=== PATIENT | female | born 1995 | race Caucasian/White ===

== ENCOUNTER → 2017-03-05 | Outpatient (CLI) | payer BC ==
[~2017-03-05] MED LIST: BCPILLS PO; IBUP-1050 PO; LISD40CA PO; SUMA100T16 PO
[2017-03-07 00:44] LABS: CHLAMYDIA TRACH RNA*** NOT DETECTED (NOT DETECTED); GC (NEIS GONORRHOEAE)RNA** NOT DETECTED (NOT DETECTED)
== END | disposition home or self-care (01) ==
LOC: C.LABSPEC 11:01
PROVIDERS: ATTEND Obstetrics & Gynecology
DX: Z11.3 Encounter for screening for infections with a predominantly sexual mode of transmission (principal)

== ENCOUNTER → 2018-03-12 | Outpatient (CLI) | payer OTHER | END | disposition home or self-care (01) | LOC: C.PAPS 14:38 | PROVIDERS: ATTEND Obstetrics & Gynecology | DX: Z12.4 Encounter for screening for malignant neoplasm of cervix (principal) ==

== ENCOUNTER → 2018-03-12 | Outpatient (CLI) | payer OTHER ==
[2018-03-12 13:35] LABS: FOLLICLE STIMULAT HORMONE 0.71 IU/L; LUTEINIZING HORMONE 0.16 IU/L; PROLACTIN 10.95 ng/mL
== END | disposition home or self-care (01) ==
LOC: C.LAB1850 11:59
PROVIDERS: ATTEND Obstetrics & Gynecology
DX: N91.2 Amenorrhea, unspecified (principal)

== ENCOUNTER → 2018-03-14 | Outpatient (CLI) | payer OTHER | END | disposition home or self-care (01) | LOC: C.LAB1850 09:46 | PROVIDERS: ATTEND Obstetrics & Gynecology | DX: Z34.01 Encounter for supervision of normal first pregnancy, first trimester (principal) ==

== ENCOUNTER 2018-11-20 05:32 | Inpatient (IN) ==
[2018-11-20] MEDS ORDERED: OXYTOCIN 30 UNITS/500 ML BAG IV PRN ×2 (06:37→09:41)
[2018-11-20] MEDS ORDERED: LACTATED RINGER'S 1,000 ML IV PRN ×3 (06:37→09:41)
--- NOTE | 2018-11-20 06:46 | History & Physical Report ---
Date of Service November 20, 2018 Assessment & Plan (1) 39 weeks gestation of : (2) SROM (spontaneous rupture of membranes): admit, iv, labs. fhts categ 1. if labor pattern does not develop will plan pit. pt aware and agreeable. History of Present Illness Chief Complaint: leaking since 5am, clear. andrey fell out at 2am Primary Care Provider: PEGGY Steele 23yo at 40wks ega presents to L&D with cc as noted. Having ctx, not regular. ROM clear fluid. No vb. +FM. PNC c/b 1. ADHD 2. Anxiety 3. Asthma 4. SMA carrier, FOB is not 5. Tired of being PNL RH pos, RI, GBS neg OBH: G1 GYNH: neg pap, no stds PMH: migraines, and as noted above PSH: wisdom teeth SH: no tob, etoh or drugs FH: no trent anom or mr Allergies Allergy/AdvReac Type Severity Reaction Status Date / Time No Known Drug Allergies Allergy Unknown . Verified 09/03/18 17:07 Home Medications Home Medications Medication Instructions Recorded Confirmed Type albuterol sulfate 1 inh INHALATION QID PRN 11/19/18 11/19/18 History docusate sodium [Colace] 100 mg PO DAILY 11/19/18 11/19/18 History vit-iron fum-folic ac 1 tab PO DAILY 11/19/18 11/19/18 History [ Vitamin] ranitidine HCl [Zantac 75] 75 mg PO DAILY 11/19/18 11/19/18 History Patient History Medical History Migraines ADHD (attention deficit hyperactivity disorder), inattentive type Acid reflux Anxiety Asthma H/O wisdom tooth extraction Sinusitis Social History Preferred Language: Danish Communication Ability: Effective Beliefs That Will Affect Care: None marital status: Single Current Living Situation: Significant Other current occupational status: employed Other Information That Helps Us Care for You: No Feels Safe at Home: Yes Smoking Status: Former smoker Tobacco Type: cigarettes Cigarettes Per Day: 2 Hx Alcohol Use: No Hx Substance Use: No Physical Exam Vital Signs (Past 24 Hours): Last Vital Signs Temp 97.9 F 11/20/18 05:45 Pulse 75 11/20/18 05:45 Resp 20 11/20/18 05:45 BP 129/69 11/20/18 05:45 Constitutional: WD/WN, vitals as above Respiratory: normal respiratory effort, lungs clear to auscultation Cardiovascular: RRR, no murmur, no edema Musculoskeletal: nt calves Neurologic: grossly normal Genitourinary: Manual OB Exam: + cervical dilation 4 cm, + cervical effacement (75), + station -2 and + amniotic fluid (SSE small pool, ?forebag attempted rom but no result) clear, nitrazine positive and ferning present OB Exam Monitor Tracing: + external FHT monitor used (135 mod variability), + external uterine monitor used (q1-5), + category I and + normal FHT variability
[2018-11-20 07:03] LABS: Hemoglobin 12.1 g/dL (12.0-16.0); Mean Corpuscular Volume 88.6 fL (80-100); Mean Platelet Volume 9.4 fL (7.4-10.4); Platelet Count 226 K/uL (130-400); RDW Coefficient of Variation 14.2 % (11.5-14.5); RDW Standard Deviation 46.5 fL (36.4-46.3); Red Blood Count 3.95 M/uL (4.2-5.4); White Blood Count 12.84 K/uL (4.8-10.8)
[2018-11-20 07:05] LABS: Mean Corpuscular Hgb Conc 34.6 g/dL (32-36)
[2018-11-20] MEDS: LACTATED RINGER'S 1,000 ML IV SCH ×4 (08:21→21:00)
[2018-11-20] MEDS ORDERED: BUPIVACAINE 0.25% 30 ML VIAL ONE ×2 (08:24→22:32)
[2018-11-20] MEDS ORDERED: fentaNYL citrate 100 MCG/2 ML VIAL ONE (08:25)
[2018-11-20] MEDS ORDERED: ePHEDrine sulfate 50 MG/ML AMP ONE (08:25)
[2018-11-20] MEDS ORDERED: fentaNYL 2MCG/ML ROPIV 1.25MG/ML 100 ML BAG EPI ONE (08:26)
--- NOTE | 2018-11-20 08:45 | Anesthesiology Consultation ---
Date of Service November 20, 2018 Assessment & Plan Chart Review Chart Review: Patient NOT seen in Pre Admission Testing and Acceptable Risk for Labor Epidural Consults Requested none ASA ASA2 Proposed Anesthesia Anesthesia Type: Labor Epidural and CSE Risk / Benefits Reviewed With: PT / POA / Parent / Guardian, Accepts Plan and Informed Consent Obtained NPO Date Last Intake of Fluids: 11/20/18 Time Last Intake of Fluids: 08:00 Date Last Intake of Solids: 11/19/18 Time Last Intake of Solids: 21:00 History Height/Weight Height: 5 ft 7 in Weight: 102.965 kg Allergies Allergy/AdvReac Type Severity Reaction Status Date / Time No Known Drug Allergies Allergy Unknown . Verified 09/03/18 17:07 Medications Home Medications Medication Instructions Recorded Confirmed Last Taken albuterol sulfate 1 inh INHALATION QID PRN 11/19/18 11/20/18 Unknown docusate sodium [Colace] 100 mg PO DAILY 11/19/18 11/20/18 11/19/18 vit-iron fum-folic ac 1 tab PO DAILY 11/19/18 11/20/18 11/19/18 09:00 [ Vitamin] ranitidine HCl [Zantac 75] 75 mg PO DAILY 11/19/18 11/20/18 11/19/18 Active Medications Generic Name Dose Route Start Last Admin Trade Name Freq PRN Reason Stop Dose Admin Lactated Ringer's 1,000 mls @ 125 mls/hr 11/20/18 06:45 11/20/18 08:21 Lr IV 11/22/18 06:44 999 mls/hr .Q8H 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 Past Medical History Medical History Migraines ADHD (attention deficit hyperactivity disorder), inattentive type Acid reflux Anxiety Asthma H/O wisdom tooth extraction Sinusitis Past Anesthesia History No Hx of Anesthesia Complications and No Family Hx of Anesthesia Complications History of PONV No Motion Sickness Screening History of Motion Sickness: No Social History Smoking Status: Former smoker tobacco type: cigarettes Smoking cigarettes per day: 2 Hx Alcohol Use: No Hx Substance Use: No substance use type: does not use Exercise / Class Metabolic Activity II 4-5 Yardwork/Stairs/Walk up hill Review of Systems no chest pain or sob Physical Exam Vital Signs Last Vital Signs Temp 36.8 C 11/20/18 07:10 Pulse 99 H 11/20/18 08:45 Resp 20 11/20/18 07:10 BP 128/79 11/20/18 06:58 Pulse Ox 99 11/20/18 08:45 ENMT Mouth: no TMJ abnormality Thyromental Distance: > or= 3.5 Finger Breadths Mallampati Class: II Neck normal visual inspection Respiratory normal respiratory effort Auscultation: lungs clear to auscultation bilaterally Cardiovascular Rate/Rhythm: regular rate and regular rhythm Musculoskeletal Spine: normal cervical ROM Neurologic moves all extremities Psychiatric Orientation: alert and oriented x 3 Testing Electrocardiogram Findings: + NSR @ Laboratory Results 11/20/18 06:48
[2018-11-20] MEDS ORDERED: NALBUPHINE HCL INJ 10 MG/ML AMP IV PRN (08:58)
[2018-11-20] MEDS ORDERED: DiphenhydrAMINE HCL 50 MG/ML VIAL IV PRN (08:58)
[2018-11-20] MEDS ORDERED: ONDANSETRON INJ 2 MG/ML 2 ML VIAL IV PRN (08:58)
[2018-11-20] MEDS ORDERED: NALOXONE HCL 0.4 MG/1 ML VIAL/CARP IV PRN (08:58)
[2018-11-20] MEDS ORDERED: fentaNYL 2MCG/ML ROPIV 1.25MG/ML 100 ML BAG EPI PRN (08:58)
[2018-11-20] MEDS ORDERED: NALOXONE HCL 1 MG in SODIUM CHLORIDE 0.9% 1000ML 1,000 ML IV PRN (08:58)
[2018-11-20] MEDS ORDERED: ePHEDrine sulfate 50 MG/ML AMP IV PRN (08:58)
--- NOTE | 2018-11-20 09:41 | Labor Progress Brief Note ---
Date of Service November 20, 2018 Subjective Comfortable with epidural. Agreeable to augmentation if needed. Assessment & Plan (1) SROM (spontaneous rupture of membranes): Augmentation of labor to begin with pitocin. Pt agreeable. Comfortable. GBS neg. Physical Exam Vital Signs (Past 24 Hours): Last Vital Signs Temp 36.8 C 11/20/18 07:10 Pulse 99 H 11/20/18 09:36 Resp 20 11/20/18 07:10 BP 124/87 11/20/18 09:36 Pulse Ox 100 11/20/18 09:35 Physical Exam: FHT Cat 1 Clancy Q2-5 irreg Cvx unchanged, 4/80/-2. Cervix noted to be pointing over towards patient's L side.
--- NOTE | 2018-11-20 12:46 | Labor Progress Brief Note ---
Date of Service November 20, 2018 Subjective comfortable with epidural Assessment & Plan (1) 39 weeks gestation of : (2) SROM (spontaneous rupture of membranes): will continue pit until adequate contractions. Pit currently at 3. Aim f or 200mvus for adequacy. Fetus category one . Still anticipate . Physical Exam Vital Signs (Past 24 Hours): Last Vital Signs Temp 98.2 F 11/20/18 11:15 Pulse 96 H 11/20/18 12:40 Resp 18 11/20/18 11:31 BP 127/61 11/20/18 12:31 Pulse Ox 99 11/20/18 12:40 Constitutional: WD/WN, vitals as above Genitourinary: cx--/-1, molding toco--difficult tracing, hard to tell how frequently she is nikkie. efm--155 with mod variablility, accels to 200s, no decels iupc placed.
[2018-11-20] MEDS ORDERED: CALCIUM CARBONATE 500 MG CHEWABLE TAB PO PRN (13:11)
[2018-11-20] MEDS ORDERED: CALCIUM CARBONATE 500 MG CHEWABLE TAB ONE (13:12)
[2018-11-20] MEDS ORDERED: ACETAMINOPHEN 325 MG TAB PO STA (14:41)
--- NOTE | 2018-11-20 18:54 | Labor Progress Brief Note ---
Date of Service November 20, 2018 Subjective Delayed note due to emergency care elsewhere. Patient comfortable with epidural when checked a short while ago. FHT Cat 1. Baseline 160 and noted higher on average than earlier, but mom remains afebrile. Still mod hood +acc -dec. [place] Q2qm. Cvx 9.5/100/+1, lip mostly to pt R anterior. No urge to push Significant molding. Plan: Continue labor and hope to achieve complete dilation and begin second stage. Physical Exam Vital Signs (Past 24 Hours): Last Vital Signs Temp 37.2 C 11/20/18 18:06 Pulse 86 11/20/18 18:50 Resp 20 11/20/18 18:06 BP 118/68 11/20/18 18:46 Pulse Ox 97 11/20/18 18:50
[2018-11-20] MEDS ORDERED: CITRIC ACID/SODIUM CITRATE 15 ML UDC ONE (22:51)
[2018-11-20] MEDS ORDERED: LIDOCAINE/EPINEPHRINE 2% 1:200,000 20 ML SDV ONE ×2 (22:51→23:21)
[2018-11-20] MEDS ORDERED: OXYTOCIN 10 UNITS/ML VIAL ONE ×2 (22:52→23:43)
[2018-11-20] MEDS ORDERED: MoRPHine SULFATE PF 1 MG/ML 10 ML AMP/VIAL ONE (22:53)
--- NOTE | 2018-11-20 22:54 | Labor Progress Brief Note ---
Date of Service November 20, 2018 Subjective Patient began 2nd stage 30min ago. Recently became markedly painful with pelvic pressure and having difficulty complying with pushing instructions. Rolling in bed, crying, requesting to change position to kneeling and squatting, expressing frustration. Assessment & Plan (1) Failure to progress in labor: Patient has been unable to effect significant descent. She is very uncomfortable, tachycardia is developing, and maternal temp is rising. Pelvic outlet feels narrow on exam. At this point patient is ready to change plan to section. Patient, FOB and mother counseled on r/b/a to section and consent is completed. Present on Admission?: Yes Physical Exam Vital Signs (Past 24 Hours): Last Vital Signs Temp 37.7 C H 11/20/18 22:10 Pulse 97 H 11/20/18 22:46 Resp 22 11/20/18 22:10 BP 133/56 L 11/20/18 22:46 Pulse Ox 98 11/20/18 22:46 Physical Exam: FHT 175 mod hood +acc -dec L[place] Q2-4 irreg Cvx 10/100/0 with caput to +1
[2018-11-20] MEDS ORDERED: CITRIC ACID/SODIUM CITRATE 15 ML UDC PO ONE (22:58)
[2018-11-20] MEDS ORDERED: LACTATED RINGER'S 1,000 ML IV SCH (23:00)
[2018-11-20] MEDS ORDERED: CEFAZOLIN 2000MG 2,000 MG/15 ML SYR IV SCH (23:00)
[2018-11-20] MEDS ORDERED: KETAMINE HCL INJ 50 MG/ML 10 ML VIAL ONE (23:28)
[2018-11-20] MEDS ORDERED: METHYLERGONOVINE MALEATE 0.2 MG/ML AMP ONE (23:42)
[2018-11-21] MEDS ORDERED: ONDANSETRON INJ 2 MG/ML 2 ML VIAL ONE (00:02)
[2018-11-21] MEDS ORDERED: PHENYLEPHRINE 100MCG/ML 5ML SYR ONE (00:02)
[2018-11-21] MEDS ORDERED: OXYTOCIN 10 UNITS/ML VIAL ONE (00:12)
[2018-11-21] MEDS ORDERED: NALBUPHINE HCL INJ 10 MG/ML AMP IV PRN (00:29)
[2018-11-21] MEDS ORDERED: LACTATED RINGER'S 500 ML IV PRN (00:29)
[2018-11-21] MEDS ORDERED: PROMETHAZINE HCL 25 MG in SODIUM CHLORIDE 0.9% 50 ML IV PRN ×2 (00:29→18:29)
[2018-11-21] MEDS ORDERED: MoRPHine SULFATE PF 1 MG/ML 10 ML AMP/VIAL EPI ONE (00:29)
[2018-11-21] MEDS ORDERED: NALOXONE HCL 0.08 MG in SYRINGE 1.8 ML IV PRN (00:29)
[2018-11-21] MEDS ORDERED: NALOXONE HCL 0.4 MG/1 ML VIAL/CARP IV PRN (00:29)
[2018-11-21] MEDS ORDERED: ONDANSETRON INJ 2 MG/ML 2 ML VIAL IV PRN ×2 (00:29→18:29)
[2018-11-21] MEDS ORDERED: DiphenhydrAMINE HCL 50 MG/ML VIAL IV PRN ×2 (00:29→18:29)
[2018-11-21] MEDS ORDERED: HYDROmorphone INJ 0.5 MG/0.5 ML SYR IV PRN (00:29)
[2018-11-21] MEDS ORDERED: NALOXONE HCL 1 MG in SODIUM CHLORIDE 0.9% 1000ML 1,000 ML IV PRN (00:29)
--- NOTE | 2018-11-21 00:29 | Operative Report ---
Post Operative Report Pre & Post Diagnosis Operation Date: 11/20/18 22:55 Pre-Op Diagnosis: 1. SIUP @ 40wk 2. Induction of Labor 3. SROM 4. Failure to progress in labor. Post-Op Diagnosis: same as above. Procedure Operation Date: 11/20/18 22:55 Actual Procedures p Primary LTCS for Live Male @ 9197(Bilateral) - Gaby Rocha MD Surgeon Gaby Rocha MD [employer] Worker Mony Viveros RN Estimated Blood Loss 800 Findings Consistent with Post-Op Diagnosis Specimens Cord blood, Placenta for exam Drains Balderas Anesthesia Type Spinal Complications none Disposition Accompanied Patient To Recovery: Yes Disposition: L&D Description of Procedure The patient was brought to the operating room and placed on the table in the supine position with a leftward tilt, then prepped and draped in standard sterile fashion. A hard time out was taken prior to proceeding. A pfannensteil incision was created sharply and carried down to the fascia using bovie electrocautery. The fascia was nicked and then extended using santiago scissors. The edges of the fascia were grasped with Anayeli clamps and elevated, then sharply and bluntly dissected off the underlying rectus. The midline of the re ctus was identified and bluntly . The peritoneum was bluntly entered, and this entry was extended using pressure from the surgeon's hands. The bladder retractor was placed and the lower uterine segment was examined and found to be well developed. A bladder flap was created and the retractor was replaced behind this flap to protect the bladder. A transverse lower uterine incision was then created, with final entry to the uterine cavity made in a blunt manner with the surgeon's finger. Clear amniotic fluid was encountered. The head was elevated to the incision and delivered using mild fundal pressure. The cord was doubly clamped and cut, then the vigorous was taken to the warmer for mounter automatic care. The placenta was manually extracted, then the uterus was gently exteriorized from the maternal abdomen. The cavity was cleared of clot and debris using a dry lap sponge. The angles of the incision were identified with allis clamps, and the hysterotomy was then repaired in running locked fashion using 0-vicryl suture, followed by a second imbricating layer. A third layer of 0 chromic suture was used in locked fashion to complete hemostasis, and 1gm Yazan was applied to the incision. Due to uterine atony, 10u IV pitocin and 0.2mg IM methergine were also given by anesthesia. The tubes and ovaries were examined and found to be normal bilaterally. The posterior gutter was irrigated and cleared of clot and debris. The uterus was then gently re-internalized to the abdomen. Lateral gutters were cleared of clot and debris using a damp lap sponge, and a final exam of the hysterotomy revealed good hemostasis as well as greatly improved uterine tone. The rectus muscles were allowed to reapproximate naturally. The angle of the fascia was grasped with a Anayeli clamp and the fascia was then repaired in running non-locked fashion with 1-vicryl suture. At the completion of repair, the fascia was examined and found to be free of any defect. The subcutaneous tissue was copiously irrigated and then reapproximated using 3-0 chromic. The skin was then closed using 4-0 monocryl in a running subcuticular fashion and a dermabond dressing was applied. The balderas was noted to be draining clear yellow urine as the patient was transferred back to her recovery room. I attest to the content of the Intraoperative Record and any orders documented therein. Any exceptions are noted below.
[2018-11-21] MEDS ORDERED: DC INTRASPINAL MORPHINE SCH (00:30)
[2018-11-21] MEDS ORDERED: NO NARCOTICS OR SEDATIVES SCH (00:30)
[2018-11-21] MEDS ORDERED: SODIUM CHLORIDE 0.9% 1000ML 1,000 ML IV SCH (00:30)
--- NOTE | 2018-11-21 01:09 | Anesthesiology Progress Note ---
Date of Service November 21, 2018 Anesthesia Post Procedure Vital Signs Vital Signs: Temp Pulse Resp BP Pulse Ox 11/21/18 01:04 115 H 99 11/21/18 01:02 101 H 92/50 L 11/21/18 00:59 106 H 98 11/21/18 00:54 37.6 C H 99 H 18 98 11/21/18 00:52 100 H 89/48 L 11/21/18 00:49 100 H 98 11/21/18 00:46 105 H 84/45 L 11/21/18 00:44 108 H 80/46 L 98 11/21/18 00:43 112 H 78/51 L 11/21/18 00:40 18 11/21/18 00:39 97 H 100 11/21/18 00:35 98 H 89 L 11/21/18 00:34 95 H 100 11/21/18 00:31 96 H 106/55 L 11/21/18 00:30 37.6 C H 108 H 98 11/21/18 00:29 100 H 100 11/20/18 23:07 100 H 98 11/20/18 23:02 88 98 11/20/18 23:00 100 H 148/64 H 11/20/18 22:57 96 H 98 11/20/18 22:51 97 H 99 11/20/18 22:46 97 H 133/56 L 98 11/20/18 22:41 98 H 99 11/20/18 22:36 92 H 97 11/20/18 22:31 100 H 97 11/20/18 22:26 115 H 97 11/20/18 22:21 119 H 97 11/20/18 22:16 106 H 96 11/20/18 22:11 110 H 97 11/20/18 22:10 37.7 C H 22 11/20/18 22:06 100 H 97 11/20/18 22:04 96 H 93 11/20/18 22:01 87 97 11/20/18 21:56 100 H 80 L 11/20/18 21:51 119 H 97 11/20/18 21:46 104 H 97 11/20/18 21:45 96 H 126/74 11/20/18 21:41 115 H 96 11/20/18 21:36 104 H 97 11/20/18 21:31 93 H 92 11/20/18 21:30 96 H 139/67 11/20/18 21:25 99 H 98 11/20/18 21:20 99 H 98 11/20/18 21:17 95 H 134/66 11/20/18 21:15 98 H 96 11/20/18 21:10 90 96 11/20/18 21:05 94 H 97 11/20/18 21:01 88 133/71 11/20/18 21:00 88 97 11/20/18 20:55 87 97 11/20/18 20:50 86 97 11/20/18 20:46 87 122/70 11/20/18 20:45 89 97 11/20/18 20:40 90 98 11/20/18 20:35 94 H 96 11/20/18 20:30 90 128/68 98 11/20/18 20:25 87 97 11/20/18 20:20 91 H 97 11/20/18 20:15 90 122/66 97 11/20/18 20:10 37.6 C H 87 18 97 11/20/18 20:05 82 97 11/20/18 20:00 85 119/58 L 97 11/20/18 19:55 86 98 11/20/18 19:50 80 97 11/20/18 19:46 79 115/55 L 11/20/18 19:45 79 98 11/20/18 19:40 81 98 11/20/18 19:35 82 98 11/20/18 19:31 82 111/56 L 11/20/18 19:30 82 98 11/20/18 19:25 86 99 11/20/18 19:20 91 H 98 11/20/18 19:16 95 H 131/69 11/20/18 19:15 99 H 98 11/20/18 19:10 89 98 11/20/18 19:05 93 H 98 11/20/18 19:01 94 H 129/82 11/20/18 19:00 98 H 99 11/20/18 18:55 104 H 99 11/20/18 18:50 86 97 11/20/18 18:46 82 118/68 11/20/18 18:45 89 97 11/20/18 18:40 90 97 11/20/18 18:35 90 98 11/20/18 18:31 85 132/63 11/20/18 18:30 86 98 11/20/18 18:25 85 98 11/20/18 18:20 93 H 99 11/20/18 18:15 87 122/70 98 11/20/18 18:10 88 98 11/20/18 18:06 37.2 C 20 11/20/18 18:05 100 H 98 11/20/18 18:00 89 115/59 L 98 11/20/18 17:55 103 H 99 11/20/18 17:50 97 H 100 11/20/18 17:45 85 121/61 98 11/20/18 17:40 84 97 11/20/18 17:35 84 97 11/20/18 17:31 86 129/66 11/20/18 17:30 99 H 98 11/20/18 17:25 86 97 11/20/18 17:20 86 96 11/20/18 17:16 100 H 135/78 11/20/18 17:15 96 H 97 11/20/18 17:10 84 96 11/20/18 17:05 37.0 C 81 18 96 11/20/18 17:00 82 119/64 97 11/20/18 16:55 86 97 11/20/18 16:50 86 98 11/20/18 16:45 84 131/73 98 11/20/18 16:40 90 98 11/20/18 16:35 87 98 11/20/18 16:30 90 132/81 98 11/20/18 16:25 86 98 11/20/18 16:20 83 97 11/20/18 16:16 80 134/94 11/20/18 16:15 78 99 11/20/18 16:10 80 98 11/20/18 16:05 81 97 11/20/18 16:01 100 H 141/69 H 11/20/18 16:00 101 H 99 11/20/18 15:55 82 97 11/20/18 15:50 82 98 11/20/18 15:46 83 125/68 11/20/18 15:45 84 97 11/20/18 15:40 90 96 11/20/18 15:35 88 97 11/20/18 15:31 91 H 117/59 L 11/20/18 15:30 83 97 11/20/18 15:25 86 98 11/20/18 15:20 84 98 11/20/18 15:16 81 124/54 L 11/20/18 15:15 89 97 11/20/18 15:10 80 97 11/20/18 15:05 92 H 96 11/20/18 15:01 37.1 C 95 H 18 124/58 L 11/20/18 15:00 86 98 11/20/18 14:55 88 97 11/20/18 14:50 86 98 11/20/18 14:45 84 116/57 L 98 11/20/18 14:40 90 98 11/20/18 14:35 80 97 11/20/18 14:30 81 20 98/51 L 97 11/20/18 14:25 77 98 11/20/18 14:20 83 98 11/20/18 14:18 77 98/55 L 11/20/18 14:15 92 H 98 11/20/18 14:10 83 97 11/20/18 14:05 99 H 97 11/20/18 14:01 90 18 130/70 11/20/18 14:00 84 97 11/20/18 13:55 88 97 11/20/18 13:50 95 H 20 97 11/20/18 13:45 88 114/60 96 11/20/18 13:40 86 95 11/20/18 13:35 83 95 11/20/18 13:31 80 113/63 11/20/18 13:30 83 18 96 11/20/18 13:25 82 96 11/20/18 13:20 80 96 11/20/18 13:15 80 115/65 97 11/20/18 13:10 86 97 11/20/18 13:05 84 96 11/20/18 13:00 86 129/83 97 11/20/18 12:55 36.8 C 86 20 97 11/20/18 12:50 95 H 98 11/20/18 12:45 92 H 126/78 97 11/20/18 12:40 96 H 99 11/20/18 12:35 95 H 98 11/20/18 12:31 90 20 127/61 11/20/18 12:30 90 98 11/20/18 12:25 82 98 11/20/18 12:20 83 98 11/20/18 12:17 83 115/57 L 11/20/18 12:15 77 98 11/20/18 12:10 74 99 11/20/18 12:05 83 98 11/20/18 12:01 81 20 103/53 L 11/20/18 12:00 84 98 11/20/18 11:55 83 99 11/20/18 11:50 83 98 11/20/18 11:45 89 113/55 L 98 11/20/18 11:40 83 99 11/20/18 11:35 102 H 98 11/20/18 11:31 97 H 18 123/56 L 11/20/18 11:30 93 H 98 11/20/18 11:25 96 H 98 11/20/18 11:20 87 98 11/20/18 11:15 36.8 C 76 16 116/56 L 98 11/20/18 11:10 92 H 98 11/20/18 11:05 86 98 11/20/18 11:00 78 111/61 98 11/20/18 10:55 75 98 11/20/18 10:50 70 98 11/20/18 10:47 78 112/54 L 11/20/18 10:45 78 99 11/20/18 10:40 72 98 11/20/18 10:35 78 98 11/20/18 10:30 81 98 11/20/18 10:29 75 18 106/54 L 11/20/18 10:27 83 100/57 L 11/20/18 10:25 72 18 103/55 L 98 11/20/18 10:23 69 99/58 L 11/20/18 10:22 71 18 96/54 L 11/20/18 10:20 77 98 11/20/18 10:15 71 114/68 97 11/20/18 10:13 71 20 111/63 11/20/18 10:11 69 113/64 11/20/18 10:10 72 96 11/20/18 10:09 68 112/65 11/20/18 10:07 80 111/66 11/20/18 10:05 72 109/66 97 11/20/18 10:03 71 110/65 11/20/18 10:01 70 112/68 11/20/18 10:00 77 97 11/20/18 09:59 73 111/67 11/20/18 09:57 74 113/67 11/20/18 09:55 72 116/65 97 11/20/18 09:53 72 116/66 11/20/18 09:51 77 116/64 11/20/18 09:50 75 112/60 98 11/20/18 09:45 73 120/71 98 11/20/18 09:43 76 20 112/67 11/20/18 09:42 72 117/63 11/20/18 09:41 84 94 11/20/18 09:40 94 H 16 140/63 97 11/20/18 09:37 83 123/69 11/20/18 09:36 99 H 124/87 11/20/18 09:35 100 H 18 100 11/20/18 09:33 72 115/71 11/20/18 09:31 75 16 119/74 11/20/18 09:30 78 96 11/20/18 09:29 80 16 114/71 11/20/18 09:27 78 113/68 11/20/18 09:26 92 H 16 110/70 11/20/18 09:25 80 96 11/20/18 09:23 84 16 119/59 L 11/20/18 09:21 85 122/58 L 11/20/18 09:20 89 16 127/61 97 11/20/18 09:15 85 113/70 97 11/20/18 09:13 75 16 111/65 11/20/18 09:11 81 112/65 11/20/18 09:10 81 97 11/20/18 09:09 88 107/62 11/20/18 09:07 80 124/57 L 11/20/18 09:05 36.5 C 81 18 123/58 L 96 11/20/18 09:01 82 126/62 11/20/18 09:00 77 97 11/20/18 08:59 80 131/66 11/20/18 08:58 93 H 141/57 H 11/20/18 08:55 86 139/79 98 11/20/18 08:50 85 99 11/20/18 08:45 99 H 99 11/20/18 08:40 84 98 11/20/18 08:35 86 98 11/20/18 08:30 78 98 11/20/18 08:25 76 98 11/20/18 08:20 88 97 11/20/18 07:10 36.8 C 20 11/20/18 06:58 84 128/79 11/20/18 05:45 36.6 C 75 20 129/69 11/20/18 05:43 75 129/69 Pain Intensity Bilateral Abdomen: Pain Intensity: 0 Notes Mental Status: alert / awake / arousable Patient Amnestic to Procedure: Yes Nausea / Vomiting: adequately controlled Pain: adequately controlled Airway Patency, RR, SpO2: stable & adequate BP & HR: stable & adequate Hydration State: stable & adequate Neuraxial Anesthesia: was administered and sensory block is resolving Anesthetic Complications: no major complications apparent and Pt Satisfied with anesthetic care
[2018-11-21] MEDS ORDERED: MAGNESIUM HYDROXIDE SUSP 30 ML UDC PO PRN (02:00)
[2018-11-21] MEDS ORDERED: HYDROCORTISONE ACETATE 25 MG SUPP PR PRN (02:00)
[2018-11-21] MEDS ORDERED: DIPHTHERIA/TETANUS/PERTUSSIS 0.5 ML SYR/VIAL IM ONE (02:00)
[2018-11-21] MEDS ORDERED: SUPERCREAM 0.870% 15 GM JAR EXT PRN (02:00)
[2018-11-21] MEDS ORDERED: LACTATED RINGER'S 1,000 ML IV SCH (02:00)
[2018-11-21] MEDS ORDERED: OXYTOCIN 30 UNITS in LACTATED RINGER'S 1,000 ML IV SCH (02:00)
[2018-11-21] MEDS ORDERED: BENZOCAINE 20% AER SPR 82.5 GM CAN EXT PRN (02:00)
[2018-11-21] MEDS: MoRPHine SULFATE 2 MG/ML CARP IV PRN ×3 (02:04→11:46)
[2018-11-21] MEDS ORDERED: SULBACTAM SOD IV SCH (05:30)
[2018-11-21] MEDS ORDERED: SODIUM CHLORIDE 0.9% IV SCH (05:30)
[2018-11-21] MEDS ORDERED: AMPICILLIN IV SCH (05:30)
[2018-11-21 07:10] LABS: Hematocrit (blood only) 26.9 % (37-47); Hemoglobin 9.2 g/dL (12.0-16.0); Mean Corpuscular Hgb Conc 34.2 g/dL (32-36); Mean Corpuscular Volume 88.8 fL (80-100); Mean Platelet Volume 8.9 fL (7.4-10.4); Platelet Count 172 K/uL (130-400); RDW Coefficient of Variation 14.4 % (11.5-14.5); Red Blood Count 3.03 M/uL (4.2-5.4); White Blood Count 18.26 K/uL (4.8-10.8)
[2018-11-21 07:29] LABS: Basophils # (auto) 0.01 K/uL (0-0.2); Basophils % (auto) 0.1 %; Eosinophils # (auto) 0.01 K/uL (0-0.5); Eosinophils % (auto) 0.1 %; Immature Granulocytes # (auto) 0.08 K/uL (0.00-0.02); Immature Granulocytes % (auto) 0.4 %; Lymphocytes # (auto) 1.54 K/uL (1.2-3.4); Lymphocytes % (auto) 8.4 %; Monocytes # (auto) 1.35 K/uL (0.11-0.59); Monocytes % (auto) 7.4 %; Neutrophils # (auto) 15.27 K/uL (1.4-6.5); Neutrophils % (auto) 83.6 %
--- NOTE | 2018-11-21 07:44 | Obstetrical Progress Note ---
Date of Service November 21, 2018 Assessment & Plan (1) state: Recovering well, normal POD#1 care today. Present on Admission?: No Subjective Ambulation: limited ambulation (bedrest) Voiding: balderas catheter in place Passing Gas:: No Diet Tolerance:: clear liquids Lochia:: Moderate Physical Exam Vital Signs (Past 24 Hours) Last Vital Signs Temp 38 C H 11/21/18 04:45 Pulse 101 H 11/21/18 03:45 Resp 20 11/21/18 04:45 BP 114/78 11/21/18 03:45 Pulse Ox 98 11/21/18 04:45 Constitutional WD/WN, vitals as above Respiratory normal respiratory effort, lungs clear to auscultation Cardiovascular RRR, no murmur, no edema Gastrointestinal (Abdomen) Soft, postgravid, incision C/D/I with dermabond Psychiatric A+Ox3, euthymic affect Genitourinary OB Exam Abdomen: + fundal height Fundus: + firm and + relation to umbilicus (- 1); not tender Results & Data Laboratory Results Laboratory Results - last 24 hr 11/20/18 11/21/18 06:48 06:52 WBC 18.26 H RBC 3.03 L Hgb 9.2 L Hct 26.9 L MCV 88.8 MCH 30.4 MCHC 34.2 RDW Std Deviation 47.0 H RDW Coeff of Zena 14.4 Plt Count 172 MPV 8.9 Immature Gran % (Auto) 0.4 Neut % (Auto) 83.6 Lymph % (Auto) 8.4 Hardin % (Auto) 7.4 Eos % (Auto) 0.1 Baso % (Auto) 0.1 Immature Gran # (Auto) 0.08 H Neut # (Auto) 15.27 H Lymph # (Auto) 1.54 Hardin # (Auto) 1.35 H Eos # (Auto) 0.01 Baso # (Auto) 0.01 Blood Type O Positive Antibody Screen NEGATIVE
[2018-11-21] MEDS ORDERED: MoRPHine SULFATE 2 MG/ML CARP IV STA (07:56)
[2018-11-21] MEDS ORDERED: ACETAMINOPHEN 325 MG TAB PO STA (07:57)
[2018-11-21] MEDS: DOCUSATE SODIUM 100 MG CAP PO SCH ×2 (08:18→19:48)
[2018-11-21] MEDS: PRENATAL VITAMIN 1 TAB PO SCH (08:18)
[2018-11-21] MEDS: SIMETHICONE 80 MG CHEW PO SCH ×3 (08:19→19:48)
[2018-11-21] MEDS: FERROUS SULFATE 325 MG TAB PO SCH (08:19)
[2018-11-21] MEDS ORDERED: KETOROLAC 30 MG/ML VIAL IV PRN ×2 (11:39→18:29)
[2018-11-21] MEDS ORDERED: ACETAMINOPHEN 325 MG TAB PO PRN (11:39)
--- NOTE | 2018-11-21 11:42 | Anesthesiology Progress Note ---
Date of Service November 21, 2018 Anesthesia Post Procedure Vital Signs Vital Signs: Temp Pulse Resp BP Pulse Ox 11/21/18 04:45 38 C H 20 98 11/21/18 03:45 38.1 C H 101 H 20 114/78 98 11/21/18 02:59 108 H 96 11/21/18 02:54 105 H 96 11/21/18 02:52 109 H 125/60 11/21/18 02:50 104 H 94 11/21/18 02:49 108 H 95 11/21/18 02:44 109 H 96 11/21/18 02:42 107 H 120/63 11/21/18 02:39 105 H 96 11/21/18 02:34 102 H 97 11/21/18 02:32 101 H 117/69 11/21/18 02:29 104 H 97 11/21/18 02:24 107 H 96 11/21/18 02:22 114 H 119/63 11/21/18 02:19 106 H 97 11/21/18 02:14 94 H 97 11/21/18 02:12 94 H 120/60 11/21/18 02:09 93 H 97 11/21/18 02:04 103 H 98 11/21/18 02:02 108 H 122/61 11/21/18 01:59 103 H 97 11/21/18 01:54 96 H 97 11/21/18 01:52 98 H 113/59 L 11/21/18 01:49 109 H 98 11/21/18 01:44 98 H 97 11/21/18 01:42 93 H 113/59 L 11/21/18 01:39 93 H 97 11/21/18 01:34 97 H 98 11/21/18 01:31 104 H 104/67 11/21/18 01:29 105 H 98 11/21/18 01:24 111 H 96 11/21/18 01:22 107 H 103/51 L 11/21/18 01:19 107 H 97 11/21/18 01:14 112 H 97 11/21/18 01:12 109 H 138/76 11/21/18 01:10 18 11/21/18 01:09 105 H 98 11/21/18 01:04 115 H 99 11/21/18 01:02 101 H 92/50 L 11/21/18 01:00 18 11/21/18 00:59 106 H 98 11/21/18 00:54 37.6 C H 99 H 18 98 11/21/18 00:52 100 H 89/48 L 11/21/18 00:49 100 H 98 11/21/18 00:46 105 H 84/45 L 11/21/18 00:44 108 H 80/46 L 98 11/21/18 00:43 112 H 78/51 L 11/21/18 00:40 18 11/21/18 00:39 97 H 100 11/21/18 00:35 98 H 89 L 11/21/18 00:34 95 H 100 11/21/18 00:31 96 H 106/55 L 11/21/18 00:30 37.6 C H 108 H 98 11/21/18 00:29 100 H 100 11/20/18 23:07 100 H 98 11/20/18 23:02 88 98 11/20/18 23:00 100 H 148/64 H 11/20/18 22:57 96 H 98 11/20/18 22:51 97 H 99 11/20/18 22:46 97 H 133/56 L 98 11/20/18 22:41 98 H 99 11/20/18 22:36 92 H 97 11/20/18 22:31 100 H 97 11/20/18 22:26 115 H 97 11/20/18 22:21 119 H 97 11/20/18 22:16 106 H 96 11/20/18 22:11 110 H 97 11/20/18 22:10 37.7 C H 22 11/20/18 22:06 100 H 97 11/20/18 22:04 96 H 93 11/20/18 22:01 87 97 11/20/18 21:56 100 H 80 L 11/20/18 21:51 119 H 97 11/20/18 21:46 104 H 97 11/20/18 21:45 96 H 126/74 11/20/18 21:41 115 H 96 11/20/18 21:36 104 H 97 11/20/18 21:31 93 H 92 11/20/18 21:30 96 H 139/67 11/20/18 21:25 99 H 98 11/20/18 21:20 99 H 98 11/20/18 21:17 95 H 134/66 11/20/18 21:15 98 H 96 11/20/18 21:10 90 96 11/20/18 21:05 94 H 97 11/20/18 21:01 88 133/71 11/20/18 21:00 88 97 11/20/18 20:55 87 97 11/20/18 20:50 86 97 11/20/18 20:46 87 122/70 11/20/18 20:45 89 97 11/20/18 20:40 90 98 11/20/18 20:35 94 H 96 11/20/18 20:30 90 128/68 98 11/20/18 20:25 87 97 11/20/18 20:20 91 H 97 11/20/18 20:15 90 122/66 97 11/20/18 20:10 37.6 C H 87 18 97 11/20/18 20:05 82 97 11/20/18 20:00 85 119/58 L 97 11/20/18 19:55 86 98 11/20/18 19:50 80 97 11/20/18 19:46 79 115/55 L 11/20/18 19:45 79 98 11/20/18 19:40 81 98 11/20/18 19:35 82 98 11/20/18 19:31 82 111/56 L 11/20/18 19:30 82 98 11/20/18 19:25 86 99 11/20/18 19:20 91 H 98 11/20/18 19:16 95 H 131/69 11/20/18 19:15 99 H 98 11/20/18 19:10 89 98 11/20/18 19:05 93 H 98 11/20/18 19:01 94 H 129/82 11/20/18 19:00 98 H 99 11/20/18 18:55 104 H 99 11/20/18 18:50 86 97 11/20/18 18:46 82 118/68 11/20/18 18:45 89 97 11/20/18 18:40 90 97 11/20/18 18:35 90 98 11/20/18 18:31 85 132/63 11/20/18 18:30 86 98 11/20/18 18:25 85 98 11/20/18 18:20 93 H 99 11/20/18 18:15 87 122/70 98 11/20/18 18:10 88 98 11/20/18 18:06 37.2 C 20 11/20/18 18:05 100 H 98 11/20/18 18:00 89 115/59 L 98 11/20/18 17:55 103 H 99 11/20/18 17:50 97 H 100 11/20/18 17:45 85 121/61 98 11/20/18 17:40 84 97 11/20/18 17:35 84 97 11/20/18 17:31 86 129/66 11/20/18 17:30 99 H 98 11/20/18 17:25 86 97 11/20/18 17:20 86 96 11/20/18 17:16 100 H 135/78 11/20/18 17:15 96 H 97 11/20/18 17:10 84 96 11/20/18 17:05 37.0 C 81 18 96 11/20/18 17:00 82 119/64 97 11/20/18 16:55 86 97 11/20/18 16:50 86 98 11/20/18 16:45 84 131/73 98 11/20/18 16:40 90 98 11/20/18 16:35 87 98 11/20/18 16:30 90 132/81 98 11/20/18 16:25 86 98 11/20/18 16:20 83 97 11/20/18 16:16 80 134/94 11/20/18 16:15 78 99 11/20/18 16:10 80 98 11/20/18 16:05 81 97 11/20/18 16:01 100 H 141/69 H 11/20/18 16:00 101 H 99 11/20/18 15:55 82 97 11/20/18 15:50 82 98 11/20/18 15:46 83 125/68 11/20/18 15:45 84 97 11/20/18 15:40 90 96 11/20/18 15:35 88 97 11/20/18 15:31 91 H 117/59 L 11/20/18 15:30 83 97 11/20/18 15:25 86 98 11/20/18 15:20 84 98 11/20/18 15:16 81 124/54 L 11/20/18 15:15 89 97 11/20/18 15:10 80 97 11/20/18 15:05 92 H 96 11/20/18 15:01 37.1 C 95 H 18 124/58 L 11/20/18 15:00 86 98 11/20/18 14:55 88 97 11/20/18 14:50 86 98 11/20/18 14:45 84 116/57 L 98 11/20/18 14:40 90 98 11/20/18 14:35 80 97 11/20/18 14:30 81 20 98/51 L 97 11/20/18 14:25 77 98 11/20/18 14:20 83 98 11/20/18 14:18 77 98/55 L 11/20/18 14:15 92 H 98 11/20/18 14:10 83 97 11/20/18 14:05 99 H 97 11/20/18 14:01 90 18 130/70 11/20/18 14:00 84 97 11/20/18 13:55 88 97 11/20/18 13:50 95 H 20 97 11/20/18 13:45 88 114/60 96 11/20/18 13:40 86 95 11/20/18 13:35 83 95 11/20/18 13:31 80 113/63 11/20/18 13:30 83 18 96 11/20/18 13:25 82 96 11/20/18 13:20 80 96 11/20/18 13:15 80 115/65 97 11/20/18 13:10 86 97 11/20/18 13:05 84 96 11/20/18 13:00 86 129/83 97 11/20/18 12:55 36.8 C 86 20 97 11/20/18 12:50 95 H 98 11/20/18 12:45 92 H 126/78 97 11/20/18 12:40 96 H 99 11/20/18 12:35 95 H 98 11/20/18 12:31 90 20 127/61 11/20/18 12:30 90 98 11/20/18 12:25 82 98 11/20/18 12:20 83 98 11/20/18 12:17 83 115/57 L 11/20/18 12:15 77 98 11/20/18 12:10 74 99 11/20/18 12:05 83 98 11/20/18 12:01 81 20 103/53 L 11/20/18 12:00 84 98 11/20/18 11:55 83 99 11/20/18 11:50 83 98 11/20/18 11:45 89 113/55 L 98 Pain Intensity Bilateral Abdomen: Pain Intensity: 3 Notes Mental Status: alert / awake / arousable Patient Amnestic to Procedure: Yes Nausea / Vomiting: adequately controlled Pain: adequately controlled Airway Patency, RR, SpO2: stable & adequate BP & HR: stable & adequate Hydration State: stable & adequate Neuraxial Anesthesia: was administered and sensory block resolved Anesthetic Complications: no major complications apparent and Pt Satisfied with anesthetic care
[2018-11-21] MEDS: AMPICILLIN/SULBACTAM SOD 3,000 MG in 0.9 % SODIUM CHLORIDE 100 ML IV SCH ×2 (11:47→19:53)
[2018-11-21] MEDS: LACTATED RINGER'S 1,000 ML IV SCH (12:39)
[2018-11-21] MEDS ORDERED: MEPERIDINE HCL 50 MG/ML CARP IV PRN (18:29)
[2018-11-21 21:54] VITALS: O2SAT 98
[2018-11-22] MEDS: OXYCODONE/ACETAMINOPHEN 5mg/325mg TAB PO PRN ×5 (00:05→23:52)
[2018-11-22] MEDS: AMPICILLIN/SULBACTAM SOD 3,000 MG in 0.9 % SODIUM CHLORIDE 100 ML IV SCH ×3 (00:05→12:09)
[2018-11-22] MEDS: IBUPROFEN 600 MG TAB PO PRN ×4 (05:52→23:52)
[2018-11-22] MEDS: SIMETHICONE 80 MG CHEW PO SCH ×5 (05:55→22:10)
[2018-11-22] MEDS: PRENATAL VITAMIN 1 TAB PO SCH (08:56)
[2018-11-22] MEDS: FERROUS SULFATE 325 MG TAB PO SCH (08:56)
[2018-11-22] MEDS: DOCUSATE SODIUM 100 MG CAP PO SCH ×2 (08:56→22:10)
--- NOTE | 2018-11-22 09:38 | Obstetrical Progress Note ---
Date of Service November 22, 2018 Assessment & Plan (1) state: Continue routine pp care. (2) Fever: temp <100 since 9:30 am yesterday. Ranging 98-99. Plan last dose of unasyn at 12 and then will d/c antibiotics. Will need to follow for at least 24 hours off antibiotics. Day #:: 1 Subjective Ambulation: limited ambulation Voiding: no voiding problems Passing Gas:: Yes Diet Tolerance:: regular diet Lochia:: Small Feeding Type:: breast feeding Patient feeling much better. Pain better controlled. No n/v. Physical Exam Vital Signs (Past 24 Hours) Last Vital Signs Temp 98.4 F 11/22/18 08:12 Pulse 109 H 11/22/18 08:12 Resp 20 11/22/18 08:12 BP 110/68 11/22/18 08:12 Pulse Ox 98 11/22/18 03:05 Constitutional WD/WN, vitals as above Cardiovascular Extremities: + edema (trace); no calf tenderness Gastrointestinal (Abdomen) soft, nt, nd fundus firm/appropriately tender at u incision c/d/i
--- NOTE | 2018-11-22 10:01 | Anesthesiology Progress Note ---
Date of Service November 22, 2018 Anesthesia Post Procedure Vital Signs Vital Signs: Temp Pulse Resp BP Pulse Ox 11/22/18 08:12 36.9 C 109 H 20 110/68 11/22/18 03:05 37.6 C H 104 H 18 111/64 98 11/22/18 00:00 37.6 C H 100 H 18 107/54 L 98 11/21/18 19:30 37.5 C 114 H 20 107/67 98 11/21/18 18:30 20 99 11/21/18 17:30 20 97 11/21/18 16:30 18 97 11/21/18 15:20 37.5 C 96 H 18 98/60 L 97 11/21/18 13:30 20 98 11/21/18 12:30 16 99 11/21/18 12:00 37.7 C H 105 H 16 100/61 98 11/21/18 11:30 16 100 11/21/18 10:30 16 99 Pain Intensity Bilateral Abdomen: Pain Intensity: 3 Notes Notes: Per the patient's nurse, the patient is sleeping. She did well overnight with no complaints. She was started on antibiotics for fever, last temp was 36.9. Pain has been better now that the patient is receiving ketorolac.
[2018-11-23] MEDS: IBUPROFEN 600 MG TAB PO PRN ×2 (05:41→11:47)
[2018-11-23] MEDS: OXYCODONE/ACETAMINOPHEN 5mg/325mg TAB PO PRN ×2 (05:42→11:46)
--- NOTE | 2018-11-23 07:30 | Obstetrical Progress Note ---
Date of Service November 23, 2018 Assessment & Plan (1) state: Doing well. Has been afebrile since day one. Pain controlled. Plan d/c later today. Instructions given. (2) Failure to progress in labor: Day #:: 3 Subjective Ambulation: ambulating normally Voiding: no voiding problems Passing Gas:: Yes Diet Tolerance:: regular diet Lochia:: Small Feeding Type:: breast feeding Doing well. No s/s of pet. Pain well controlled. Physical Exam Vital Signs (Past 24 Hours) Last Vital Signs Temp 97.3 F L 11/23/18 04:30 Pulse 87 11/23/18 04:30 Resp 16 11/23/18 04:30 BP 113/72 11/23/18 04:30 Pulse Ox 98 11/23/18 04:30 Constitutional WD/WN, vitals as above Cardiovascular Extremities: + edema (trace); no calf tenderness
[2018-11-23 08:47] VITALS: BP 104/67; PULSE 84; TEMP 97.7
[2018-11-23] MEDS: DOCUSATE SODIUM 100 MG CAP PO SCH (09:21)
[2018-11-23] MEDS: SIMETHICONE 80 MG CHEW PO SCH ×2 (09:21→11:46)
[2018-11-23] MEDS: PRENATAL VITAMIN 1 TAB PO SCH (09:21)
[2018-11-23] MEDS: FERROUS SULFATE 325 MG TAB PO SCH (09:21)
--- NOTE | 2018-11-25 08:59 | Discharge Summary ---
Date of Service November 25, 2018 Discharge Data Consultations 11/20/18 06:37 Consult Anesthesiology Stat Procedures Performed Operation Date: 11/20/18 22:55 Actual Procedures p Section in LD - Live Male @ 2328(Bilateral) - Gaby Rocha MD Hospital Course (1) Failure to progress in labor: Patient requested induction, reached complete dilation but unable to cause descent in second stage. Uncomplicated section followed. Treated for suspected chorioamnionitis on POD#0-1, afebrile thereafter. Discharged on normal timeframe in good condition with 6 week f/u planned.
== END 2018-11-23 14:23 | disposition home or self-care (01) | DRG 786 ==
LOC: EDSTATUS 05:32 → OPB 05:32 → 4S1 05:33 → 4S2 11-21 03:21